=== PATIENT | female | born 1955 | race Caucasian/White ===

== ENCOUNTER → 2016-06-07 | Outpatient (CLI) | payer OTHER ==
--- NOTE | 2016-06-07 16:26 | MA ---
Bilateral Screening Digital Mammograms With iCAD Clinical Indications: Routine screening mammograms. Positive family history. Technique: Standard digital cephalocaudal and mediolateral oblique projections were obtained. This examination was processed by the iCAD computer-aided detection system. Comparison: 2013, 2012, 2010. Breast density: Type C. Findings: Computer-aided detection was reviewed. No suspicious cluster of microcalcifications, new d ominant densities or architectural distortion. Impression: 1. ACR BI-RADS 1: Negative Mammogram.. 2. No mammographic evidence of malignancy. Recommendation: 1. If physical exam is negative, recommend annual mammograms with next mammogram June 2017. 2. Dense mammographic pattern limits the sensitivity of mammography in this patient. If there is a cl inically palpable abnormality, recommend additional imaging with ultrasound, if clinically indicated. [facility] will send a result letter to the patient. Negative mammography should not preclude additional workup of a clinically suspicious finding. The patient's information is entered into a reminder system with a target due date for her next mammo gram.
== END ==
LOC: BRMIMAGING 12:57
DX: Z12.31 Encounter for screening mammogram for malignant neoplasm of breast (principal); Z80.3 Family history of malignant neoplasm of breast
CPT/HCPCS: G0202